=== PATIENT | female | born 2000 | race African-American/Black ===

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

== ENCOUNTER 2024-02-24 13:27 | Inpatient (IN) | payer MEDICAID, OTHER, SELFPAY ==
[~2024-02-24] VITALS: Ht 165.1 cm; Wt 59.1 kg
[2024-02-24 14:27] LABS: HEMATOCRIT 42.2 % (36.0-47.0); HEMOGLOBIN 13.6 g/dl (12.0-15.5); MEAN CORPUSCULAR HEMOGLOBIN 27.6 pg (27.0-33.0); MEAN CORPUSCULAR HGB CONC 32.2 g/dl (32.0-36.5); MEAN CORPUSCULAR VOLUME 85.6 fl (80.0-96.0); PLATELET COUNT, AUTOMATED 281 10^3/uL (150-450); RED BLOOD COUNT 4.93 10^6/uL (4.00-5.40); WHITE BLOOD COUNT 5.6 10^3/uL (4.0-10.0)
[2024-02-24 14:56] LABS: ETHYL ALCOHOL (ETHANOL) 0.003 % (0.000-0.010)
[2024-02-24 14:58] LABS: ALKALINE PHOSPHATASE 53 U/L (46-116); ALT/SGPT 9 U/L (7.0-40); AST/SGOT < 8 U/L (<34); BILIRUBIN,DIRECT 0.2 MG/DL (<0.4); BILIRUBIN,TOTAL 0.6 MG/DL (0.3-1.2); BLOOD UREA NITROGEN 6 MG/DL (9-23); CARBON DIOXIDE LEVEL 30 MMOL/L (20-31); CHLORIDE LEVEL 106 MMOL/L (98-107); CREATININE FOR GFR 0.56 MG/DL (0.55-1.30); GLOMERULAR FILTRATION RATE > 60.0 (>60); GLUCOSE, FASTING 82 MG/DL (60-100); POTASSIUM SERUM 4.4 MMOL/L (3.5-5.1); SALICYLATE LEVEL < 3.0 MG/DL (<30); SODIUM LEVEL 140 MMOL/L (136-145); TOTAL PROTEIN 7.4 G/DL (5.7-8.2)
[2024-02-24 15:04] LABS: HCG, SERUM QUALITATIVE NEGATIVE (NEGATIVE)
[2024-02-24 15:20] LABS: AMPHETAMINES LEVEL URINE NEGATIVE (NEGATIVE); BARBITURATES URINE NEGATIVE (NEGATIVE); BENZODIAZEPINES URINE NEGATIVE (NEGATIVE); COCAINE METABOLITE URINE NEGATIVE (NEGATIVE); METHADONE URINE NEGATIVE (NEGATIVE); OPIATES URINE NEGATIVE (NEGATIVE); PHENCYCLIDINE URINE NEGATIVE (NEGATIVE)
[2024-02-24 15:21] LABS: CANNABINOIDS URINE POSITIVE (NEGATIVE)
[2024-02-24] MEDS ORDERED: traZODone 50 MG TAB PO PRN (17:20)
[2024-02-24] MEDS ORDERED: ACETAMINOPHEN TAB 650MG DOSE (2X325MG) PO PRN (17:20)
[2024-02-24] MEDS ORDERED: IBUPROFEN 400MG TAB PO PRN (17:20)
[2024-02-24] MEDS ORDERED: MOM 30ML SUSPENSION UDC PO PRN (17:20)
[2024-02-24] MEDS ORDERED: diphenhydrAMINE 25MG CAP PO PRN (17:20)
[2024-02-24] MEDS ORDERED: MAALOX 30 ML SUSP *UDC PO PRN (17:20)
[2024-02-24] MEDS ORDERED: HOME MED LIST COMPLETE! XX SCH (17:35)
[2024-02-24 18:22] VITALS: BP 95/61; TEMP 97.3; O2SAT 100
[2024-02-25 06:16] VITALS: BP 124/68; TEMP 97.4; O2SAT 100
[2024-02-25] MEDS: FLUoxetine 10 MG CAP PO SCH (10:32)
[2024-02-25 16:42] VITALS: BP 125/81; TEMP 98.3; O2SAT 100
[2024-02-26 06:18] VITALS: BP 101/62; TEMP 98; O2SAT 100
[2024-02-26 14:43] VITALS: BP 132/58; TEMP 97.8; O2SAT 100
[2024-02-27 06:27] VITALS: BP 107/68; TEMP 97.8; O2SAT 100
[2024-02-27] MEDS ORDERED: ABIL1TAB11 PO (08:55)
[2024-02-27] MEDS ORDERED: PROZ10CA7 PO (08:55)
== END 2024-02-27 14:24 | disposition home or self-care (01) | DRG 751 ==
LOC: M ED 13:27 → M ED INP 17:20 → M PSY 18:06
PROVIDERS: ADMIT Psychiatry & Neurology Psychiatry; ATTEND Psychiatry & Neurology Psychiatry
DX: F33.9 Major depressive disorder, recurrent, unspecified (principal); R45.851 Suicidal ideations; F60.3 Borderline personality disorder; Z62.810 Personal history of physical and sexual abuse in childhood; Z62.811 Personal history of psychological abuse in childhood; K29.70 Gastritis, unspecified, without bleeding; Z59.00 Homelessness unspecified